=== PATIENT | female | born 1975 | race Two or more races ===

== ENCOUNTER 2025-06-10 06:16 | Day surgery (SDC) | payer OTHER ==
[~2025-06-10 06:16] MED LIST: METOLAZONE10 MG PO; ZYRTEC10 M3 PO
[2025-06-10] MEDS ORDERED: ACETAMINOPHEN 500 MG GEL..CAP PO STA (12:45)
== END 2025-06-10 18:00 | disposition home or self-care (01) ==
LOC: CIR.AMB 06:16
PROVIDERS: ATTEND Obstetrics & Gynecology
DX: D25.0 Submucous leiomyoma of uterus (principal); N95.0 Postmenopausal bleeding; N84.0 Polyp of corpus uteri